=== PATIENT | male | born 1995 | race Caucasian/White ===

== ENCOUNTER 2021-03-25 21:54 | Emergency (ER) | payer BC ==
[2021-03-25] MEDS ORDERED: Ibuprofen 600 MG Tab PO ONE (22:57)
--- NOTE | 2021-03-25 22:59 | EDM.PDOC ---
ED HPI GENERAL MEDICAL PROBLEM - General Chief Complaint: Lower Extremity Injury/Pain Stated Complaint: RT ANKLE PAIN Time Seen by Provider: 03/25/21 22:51 - History of Present Illness INITIAL COMMENTS - FREE TEXT/NARRATIVE: Otherwise well 25-year-old male presenting with acute right medial ankle pain patient was playing with the dog stood up and had an inversion injury felt a pop. Pain worsens with ambulation is moderate at this time does not radiate into the knee no other injury and no fall. right ankle Pain Score (Numeric/FACES): 5 - Related Data Allergies Allergy/AdvReac Type Severity Reaction Status Date / Time No Known Allergies Allergy Verified 03/25/21 22:57 Home Meds: Home Meds FLUoxetine [PROzac] 20 mg PO DAILY 03/25/21 [History] Fexofenadine/Pseudoephedrine [Jana-D 12 Hour Tablet] 1 tab PO DAILY PRN 03/25/21 [History] Mometasone/Formoterol [Dulera 100-5 MCG] 1 puff INH DAILY 03/25/21 [History] Review of Systems - Review of Systems Review Of Systems: See Below Constitutional: Reports: No Symptoms Musculoskeletal: Reports: Other (Per HPI) Skin: Reports: No Symptoms Neurological: Reports: No Symptoms ED EXAM, GENERAL - Physical Exam Exam: See Below Free Text/Narrative:: General Appearance: No acute distress, appears comfortable Skin: No rash HEENT: Normocephalic/atraumatic, sclera anicteric, mucous membranes moist Neck: Normal range of motion Musculoskeletal: 2+ right DP pulse, good perfusion in all digits of the right foot right foot neurovascularly intact focal tenderness over the medial malleolus no proximal fibula tenderness no significant swelling passive and active range of motion of the ankle is relatively good but significant pain limited weakness is present with plantarflexion inversion and eversion Neurologic: Awake, alert, no obvious deficits, moving all extremities Psychiatric: Appropriate, cooperative Course - Vital Signs Last Recorded V/S: Last Vital Signs Temp 97.4 F 03/25/21 22:54 Pulse 104 H 03/25/21 22:54 Resp 16 03/25/21 22:54 BP 127/87 03/25/21 22:54 Pulse Ox 95 03/25/21 22:54 - Orders/Labs/Meds Orders: Active Orders 24 hr Category Date Time Status Ankle 2V Rt [CR] Stat Exams 03/25/21 22:57 Taken Meds: Medications Discontinued Medications Generic Name Dose Route Start Last Admin Trade Name Iftikhar PRN Reason Stop Dose Admin Ibuprofen 600 mg 03/25/21 22:57 03/25/21 23:21 Ibuprofen 600 Mg Tab PO 03/25/21 22:58 600 mg ONETIME ONE Administration Departure - Departure Time of Disposition: 23:30 Disposition: Home, Self-Care 01 Condition: Good Clinical Impression: Right ankle sprain - Discharge Information *PRESCRIPTION DRUG MONITORING PROGRAM REVIEWED*: Not Applicable *COPY OF PRESCRIPTION DRUG MONITORING REPORT IN PATIENT MORRIS: Not Applicable Instructions: Ankle Sprain With Phase I Rehab-SportsMed, RICE Therapy for Routine Care of Injuries, Lulj-[id number] Forms: ED Department Discharge Additional Instructions: Please use the Armani wrap whenever you are up and around but do not wear it at night. Ice and elevation will be particularly important over the next 2 days to prevent swelling. Your symptoms should improve over the next few days. However, if not please follow-up with your primary care doctor or with the orthopedic clinic. [facility] [address], [address] [place] [address] The following information is given to patients seen in the emergency department who are being discharged to home. This information is to outline your options for follow-up care. We provide all patients seen in our emergency department with a follow-up referral. The need for follow-up, as well as the timing and circumstances, are variable depending upon the specifics of your emergency department visit. If you don't have a primary care physician on staff, we will provide you with a referral. We always advise you to contact your personal physician following an emergency department visit to inform them of the circumstance of the visit and for follow-up with them and/or the need for any referrals to a consulting specialist. The emergency department will also refer you to a specialist when appropriate. This referral assures that you have the opportunity for follow-up care with a specialist. All of these measure are taken in an effort to provide you with optimal care, which includes your follow-up. Under all circumstances we always encourage you to contact your private physician who remains a resource for coordinating your care. When calling for follow-up care, please make the office aware that this follow-up is from your recent emergency room visit. If for any reason you are refused follow-up, please contact the [facility] Emergency Dep artment at and asked to speak to the emergency department charge nurse. Sepsis Event Note (ED) - Evaluation Sepsis Screening Result: No Definite Risk - Focused Exam Vital Signs: Vital Signs Temp Pulse Resp BP Pulse Ox 03/25/21 22:54 97.4 F 104 H 16 127/87 95 - My Orders Last 24 Hours: My Active Orders 03/25/21 22:57 Ankle 2V Rt [CR] Stat - Assessment/Plan Last 24 Hours: My Active Orders 03/25/21 22:57 Ankle 2V Rt [CR] Stat Assessment:: 25-year-old male presented with signs and symptoms most consistent with right ankle sprain fracture considered as well and x-ray pending ibuprofen for pain control. 2330: X-ray negative for fracture Armani wrap applied patient already has an ankle cast anticipatory guidance provided patient felt stable for discharge.
--- NOTE | 2021-03-25 23:51 | CR ---
INDICATION: Right ankle pain status post inversion injury TECHNIQUE: Ankle radiograph 2 views right COMPARISON: None FINDINGS: Bone: No acute fractures or aggressive bone lesions are identified. Joint: The ankle mortise joint and the visualized hindfoot joints are unremarkable in appearance. No significant ankle effusion is seen. Soft tissue: The Kager fat pad and the Achilles` tendon is normal in appearance. No radiopaque foreign bodies are seen. IMPRESSION: 1. No acute osseous injuries or abnormalities are noted. Dictated by: Hira Hernandez MD @ 03/25/2021 23:50:31 (Electronically Signed)
== END 2021-03-25 23:40 | disposition home or self-care (01) ==
LOC: MW.ED 21:54
DX: S93.401A Sprain of unspecified ligament of right ankle, initial encounter (principal); X50.1XXA Overexertion from prolonged static or awkward postures, initial encounter
CPT/HCPCS: 73600; 99283; A9270